=== PATIENT | male | born 1940 | race Caucasian/White ===

== ENCOUNTER 2023-04-17 11:36 | Inpatient (IN) | payer MEDICARE ==
[~2023-04-17] VITALS: Ht 190.5 cm; Wt 100.0 kg
[2023-04-17] VITALS (18 sets, daily range): BP systolic 64–123; BP diastolic 40–70; PULSE 53–82; RESP 6–22; O2SAT 91–99
[~2023-04-17 11:36] MED LIST: 5 HTP; CHOL100010 PO; CRAN450T9 PO; GING500C2 PO; GLUC100017 PO; LIDOcaine 1% 30ml preserv. free vial ONE; LIDOcaine 2% (20 mg/ml) 5ml cardiac syringe ONE; LISI40TA13 PO; LUTE6CAP PO; MULT-785 PO; OMEG100T PO; SAW80CAP2 PO; STINGING NETTLE; VITA100T PO; ZINC1CAP3 PO; amiodarone 50MG/ML inj IV ONE; atropine 0.1mg/ml 10ml syringe ONE; epiNEPHrine 0.1mg/ml 10ml syringe ONE; fentaNYL/PF 50MCG/1 ML 2ML syringe ONE; heparin 1,000unit/ml 10ml vial 10 ML ONE; iohexol 350MG/ML 100ml bottle IV ONE; midazolam 1 mg/ML 2ml injection ONE; nitroGLYCERIN 500mcg/5mL D5W 0 ML IV ONE; sodium bicarbonate (8.4%) 1 mEq/ml syringe ONE; verapamil 2.5 mg/ml inj IV ONE
[2023-04-17] MEDS: amiodarone 50MG/ML inj IV ONE (11:45)
[2023-04-17] MEDS: epiNEPHrine 1 mg/ml inj IV STA (11:46)
[2023-04-17] MEDS: atropine 1 MG/1 ML vial IV ONE (11:48)
[2023-04-17] MEDS: LIDOcaine 2% (20 mg/ml) 5ml cardiac syringe IV STA (11:49)
[2023-04-17 11:50] LABS: EOSINOPHILS # (AUTO) 0.1 X10'3 (0-0.9); RED BLOOD COUNT 4.33 X10'6 (4.70-6.10); WHITE BLOOD COUNT 6.7 X10'3 (4.5-11.0)
[2023-04-17 11:52] LABS: BASOPHILS % (AUTO) 0.6 % (0-1); EOSINOPHILS % (AUTO) 1.9 % (0-6); HEMATOCRIT 42.6 % (42.0-52.0); HEMOGLOBIN 14.3 g/dl (14.0-17.9); LYMPHOCYTES # (AUTO) 1.8 X10'3 (1.1-4.8); MEAN CORPUSCULAR HEMOGLOBIN 32.9 PG (27.0-31.0); MEAN CORPUSCULAR HGB CONC 33.5 g/dL (33.0-36.5); MEAN CORPUSCULAR VOLUME 98.3 FL (78-98); MEAN PLATELET VOLUME 7.5 FL (7.4-10.4); MONOCYTES # (AUTO) 0.7 X10'3 (0-0.9); MONOCYTES % (AUTO) 10.6 % (2-12); NEUTROPHILS % (AUTO) 59.9 % (42-75); PLATELET COUNT 287 X10'3 (140-440); RED CELL DISTRIBUTION WIDTH 13.2 % (11.5-14.5)
[2023-04-17] MEDS: propofol 1000mg/100ml bottle 100 ML IV ONE (11:55)
[2023-04-17] MEDS ORDERED: propofol 1000mg/100ml bottle 100 ML IV PRN ×2 (12:05→12:11)
[2023-04-17 12:11] LABS: ALBUMIN 3.8 G/DL (3.4-5.0); ANION GAP 12 (8-16); BLOOD UREA NITROGEN 24 MG/DL (7-18); BUN/CREATININE RATIO 21.6 (10.0-20.0); CALCIUM 9.2 MG/DL (8.5-10.1); CHLORIDE 102 MMOL/L (99-107); CREATININE 1.11 MG/DL (0.60-1.10); GLUCOSE 124 MG/DL (70-104); POTASSIUM 3.7 MMOL/L (3.5-5.1); PRO BRAIN NATRIURETIC PEPTIDE 176 PG/ML (0-450); SODIUM 141 MMOL/L (135-145); TOTAL CARBON DIOXIDE 26.7 MMOL/L (24-32); eCRCL 55 ML/MIN; eGFR 63 ML/MIN
[2023-04-17] MEDS ORDERED: ticagrelor 90mg tablet ONE (12:28)
[2023-04-17] MEDS: NORepinephrine 8mg/ 250ml NS 250 ML IV ONE (13:30)
[2023-04-17] MEDS ORDERED: amiodarone/D5 360MG/200ML BAG 200 ML IV SCH (13:55)
[2023-04-17 13:56] LABS: ABG BASE EXCESS -5.8 mmol/L (-2.0-2.0); ABG HCO3 19.2 mmol/L (22.0-26.0); ABG OXYGEN SATURATION 98.2 % (94-97); ABG PCO2 (T) 36.2 mmHg (35.0-48.0); ABG PH (T) 7.343 (7.340-7.440); ABG PO2 (T) 119.5 mmHg (75.0-100.0); FCOHb 0.3 % (0.0-3.9); FHHb 1.8 % (0.0-5.0); FMetHb 0.3 % (0.0-1.5); FO2Hb 97.6 % (94-97); MODE VENT - SIMV; PEEP 5 cm H2O; RESPIRATORY RATE 16 b/min; TIDAL VOLUME 450 mL; TOTAL HEMOGLOBIN 12.7 G/dl (14.0-17.9)
[2023-04-17] MEDS ORDERED: ROSU10TA28 PO (14:16)
[2023-04-17] MEDS ORDERED: ASCO100031 PO (14:16)
[2023-04-17] MEDS ORDERED: AMLO5TAB16 PO (14:16)
[2023-04-17] MEDS ORDERED: HYDR25TA4 PO (14:16)
[2023-04-17] MEDS ORDERED: ESCI-8 PO (14:16)
[2023-04-17] MEDS: amiodarone/D5 360MG/200ML BAG 200 ML IV SCH (14:20)
[2023-04-17] MEDS: FENTANYL-0.9 % NACL/PF 100 ML IV PRN (14:21)
[2023-04-17] MEDS ORDERED: ondansetron/PF 4mg/2ml inj IV PRN (14:30)
[2023-04-17] MEDS: ticagrelor 90mg tablet PO SCH (20:00)
[2023-04-18] VITALS (27 sets, daily range): BP systolic 71–158; BP diastolic 41–73; PULSE 54–94; RESP 6–25; TEMP 97.8–98.7; O2SAT 90–98
[2023-04-18 03:23] LABS: ABG HCO3 22.7 mmol/L (22.0-26.0); ABG OXYGEN SATURATION 93.7 % (94-97); ABG PCO2 (T) 43.9 mmHg (35.0-48.0); ABG PH (T) 7.334 (7.340-7.440); ALLEN'S TEST Modified; FCOHb 0.3 % (0.0-3.9); FHHb 6.3 % (0.0-5.0); FMetHb 0.3 % (0.0-1.5); FO2Hb 93.1 % (94-97); MODE PRVC; PATIENT TEMPERATURE 37.3; PEEP 5 cm H2O; RESPIRATORY RATE 16 b/min; TIDAL VOLUME 450 mL; TOTAL HEMOGLOBIN 12.2 G/dl (14.0-17.9)
[2023-04-18 06:19] LABS: BASOPHILS % (AUTO) 0 % (0-1); EOSINOPHILS % (AUTO) 0 % (0-6); HEMATOCRIT 33.4 % (42.0-52.0); HEMOGLOBIN 11.1 g/dl (14.0-17.9); LYMPHOCYTES # (AUTO) 0.6 X10'3 (1.1-4.8); LYMPHOCYTES % (AUTO) 5.1 % (21-51); MEAN CORPUSCULAR HEMOGLOBIN 33.1 PG (27.0-31.0); MEAN CORPUSCULAR HGB CONC 33.1 g/dL (33.0-36.5); MEAN CORPUSCULAR VOLUME 99.7 FL (78-98); MEAN PLATELET VOLUME 7.7 FL (7.4-10.4); MONOCYTES % (AUTO) 8.8 % (2-12); NEUTROPHILS # (AUTO) 10.2 X10'3 (1.8-7.7); NEUTROPHILS % (AUTO) 86.1 % (42-75); PLATELET COUNT 228 X10'3 (140-440); RED BLOOD COUNT 3.35 X10'6 (4.70-6.10); RED CELL DISTRIBUTION WIDTH 13.6 % (11.5-14.5); WHITE BLOOD COUNT 11.8 X10'3 (4.5-11.0)
[2023-04-18 06:42] LABS: ALANINE AMINOTRANSFERASE 57 U/L (12-78); ALBUMIN 2.7 G/DL (3.4-5.0); ALKALINE PHOSPHATASE 35 IU/L (46-116); ANION GAP 9 (8-16); ASPARTATE AMINO TRANSFERASE 178 U/L (10-37); BILIRUBIN,TOTAL 0.3 MG/DL (0.1-1.0); BLOOD UREA NITROGEN 28 MG/DL (7-18); BUN/CREATININE RATIO 19.2 (10.0-20.0); CALCIUM 7.2 MG/DL (8.5-10.1); CHLORIDE 110 MMOL/L (99-107); CREATININE 1.46 MG/DL (0.60-1.10); GLUCOSE 132 MG/DL (70-104); POTASSIUM 3.9 MMOL/L (3.5-5.1); SODIUM 143 MMOL/L (135-145); TOTAL CARBON DIOXIDE 24.4 MMOL/L (24-32); TOTAL PROTEIN 5.4 G/DL (6.4-8.2); eCRCL 42 ML/MIN; eGFR 46 ML/MIN
[2023-04-18] MEDS: famotidine/PF 10 mg/ml inj IV SCH ×2 (08:00→20:31)
[2023-04-18] MEDS: aspirin 81mg, enteric-coated 1 TAB TABLET.DR PO SCH (11:19)
[2023-04-18] MEDS: HYDROcodone/acetaminophen 10/325mg tab PO PRN (18:45)
[2023-04-18] MEDS: metoprolol tartrate 12.5mg (1/2 tablet) PO SCH (20:29)
[2023-04-18] MEDS ORDERED: ROSUVASTATIN CALCIUM 5 MG TABLET PO SCH (21:00)
[2023-04-18] MEDS: Melatonin 3mg tablet PO SCH (21:19)
[2023-04-18] MEDS: guaiFENesin/DM 10ml UD oral syrup PO PRN (21:19)
[2023-04-19] VITALS (29 sets, daily range): BP systolic 89–137; BP diastolic 50–80; PULSE 60–85; RESP 12–27; TEMP 97.4–98.2; O2SAT 24–98
[2023-04-19] MEDS: atorvastatin 20mg tablet PO SCH (07:31)
[2023-04-19] MEDS: ascorbic acid 500mg tablet PO SCH (07:32)
[2023-04-19] MEDS: ESCITALOPRAM 10 mg tablet 10 MG TABLET PO SCH (07:32)
[2023-04-19 08:19] LABS: BASOPHILS % (AUTO) 0.1 % (0-1); EOSINOPHILS % (AUTO) 0 % (0-6); HEMATOCRIT 32.5 % (42.0-52.0); HEMOGLOBIN 10.8 g/dl (14.0-17.9); LYMPHOCYTES # (AUTO) 0.5 X10'3 (1.1-4.8); LYMPHOCYTES % (AUTO) 3.9 % (21-51); MEAN CORPUSCULAR HEMOGLOBIN 33.4 PG (27.0-31.0); MEAN CORPUSCULAR HGB CONC 33.3 g/dL (33.0-36.5); MEAN CORPUSCULAR VOLUME 100.4 FL (78-98); MEAN PLATELET VOLUME 7.9 FL (7.4-10.4); MONOCYTES % (AUTO) 7.9 % (2-12); NEUTROPHILS # (AUTO) 10.9 X10'3 (1.8-7.7); NEUTROPHILS % (AUTO) 88.1 % (42-75); PLATELET COUNT 187 X10'3 (140-440); RED BLOOD COUNT 3.24 X10'6 (4.70-6.10); RED CELL DISTRIBUTION WIDTH 13.8 % (11.5-14.5); WHITE BLOOD COUNT 12.4 X10'3 (4.5-11.0)
[2023-04-19 08:50] LABS: TOTAL IRON BINDING CAPACITY 228 UG/DL (259-388)
[2023-04-19 08:52] LABS: % IRON SATURATION 12 % (11-46); IRON 28 UG/DL (53-167)
[2023-04-19 08:55] LABS: ALANINE AMINOTRANSFERASE 48 U/L (12-78); ALBUMIN 2.8 G/DL (3.4-5.0); ALBUMIN/GLOBULIN RATIO 0.9 (1.1-1.5); ALKALINE PHOSPHATASE 38 IU/L (46-116); ANION GAP 7 (8-16); ASPARTATE AMINO TRANSFERASE 113 U/L (10-37); BILIRUBIN,TOTAL 0.5 MG/DL (0.1-1.0); BLOOD UREA NITROGEN 35 MG/DL (7-18); BUN/CREATININE RATIO 25.7 (10.0-20.0); CALCIUM 8.2 MG/DL (8.5-10.1); CHLORIDE 108 MMOL/L (99-107); CHOL/HDL RATIO 1.7 (0.00-4.99); CHOLESTEROL 104 MG/DL (0-200); CREATININE 1.36 MG/DL (0.60-1.10); FERRITIN 206 NG/ML (26-388); GLUCOSE 132 MG/DL (70-104); HDL CHOLESTEROL 61 MG/DL (35-60); LDL CHOLESTEROL 32 MG/DL (50-100); MAGNESIUM 2.4 MG/DL (1.5-2.4); SODIUM 139 MMOL/L (135-145); TOTAL CARBON DIOXIDE 23.7 MMOL/L (24-32); TOTAL PROTEIN 5.9 G/DL (6.4-8.2); TRIGLYCERIDES 74 MG/DL (20-135); eCRCL 45 ML/MIN; eGFR 50 ML/MIN
[2023-04-19] MEDS: amiodarone 200mg tablet PO SCH (17:17)
[2023-04-20] VITALS (14 sets, daily range): BP systolic 100–135; BP diastolic 53–74; PULSE 65–83; RESP 16–23; TEMP 97.1–98; O2SAT 92–99
[2023-04-20 06:50] LABS: BASOPHILS % (AUTO) 0.1 % (0-1); EOSINOPHILS # (AUTO) 0.1 X10'3 (0-0.9); EOSINOPHILS % (AUTO) 0.6 % (0-6); HEMATOCRIT 30.4 % (42.0-52.0); HEMOGLOBIN 10.4 g/dl (14.0-17.9); LYMPHOCYTES # (AUTO) 0.5 X10'3 (1.1-4.8); LYMPHOCYTES % (AUTO) 5.5 % (21-51); MEAN CORPUSCULAR HEMOGLOBIN 33.9 PG (27.0-31.0); MEAN CORPUSCULAR HGB CONC 34.3 g/dL (33.0-36.5); MEAN CORPUSCULAR VOLUME 98.8 FL (78-98); MONOCYTES % (AUTO) 9.8 % (2-12); NEUTROPHILS # (AUTO) 8.2 X10'3 (1.8-7.7); PLATELET COUNT 175 X10'3 (140-440); RED BLOOD COUNT 3.07 X10'6 (4.70-6.10); RED CELL DISTRIBUTION WIDTH 13.1 % (11.5-14.5); WHITE BLOOD COUNT 9.7 X10'3 (4.5-11.0)
[2023-04-20 07:09] LABS: ALANINE AMINOTRANSFERASE 40 U/L (12-78); ALBUMIN 2.6 G/DL (3.4-5.0); ALBUMIN/GLOBULIN RATIO 0.9 (1.1-1.5); ALKALINE PHOSPHATASE 37 IU/L (46-116); ANION GAP 8 (8-16); ASPARTATE AMINO TRANSFERASE 63 U/L (10-37); BILIRUBIN,TOTAL 0.8 MG/DL (0.1-1.0); BLOOD UREA NITROGEN 36 MG/DL (7-18); BUN/CREATININE RATIO 29.8 (10.0-20.0); CHLORIDE 107 MMOL/L (99-107); CREATININE 1.21 MG/DL (0.60-1.10); GLUCOSE 113 MG/DL (70-104); MAGNESIUM 2.4 MG/DL (1.5-2.4); POTASSIUM 3.8 MMOL/L (3.5-5.1); SODIUM 140 MMOL/L (135-145); THYROID STIMULATING HORMONE 0.53 ulU/ml (0.34-4.50); TOTAL CARBON DIOXIDE 25.3 MMOL/L (24-32); TOTAL PROTEIN 5.6 G/DL (6.4-8.2); eCRCL 50 ML/MIN; eGFR 57 ML/MIN
[2023-04-20] MEDS: ferrous sulfate 325mg tablet PO SCH (09:27)
[2023-04-20] MEDS: famotidine 20mg tablet PO SCH (09:30)
[2023-04-20 15:14] LABS: HBSAG SCREEN Negative (Negative); HEP A AB, IGM Negative (Negative); HEP B CORE AB, IGM Negative (Negative); HEPATITIS C VIRUS ANTIBODY Non Reactive (Non Reactive)
[2023-04-20] MEDS: furosemide 20 MG/2 ML vial IV ONE (15:40)
[2023-04-20] MEDS: furosemide 20 MG/2 ML vial IV SCH (20:00)
[2023-04-20] MEDS: ESCITALOPRAM 10 mg tablet 10 MG TABLET PO SCH (21:02)
[2023-04-21] VITALS (15 sets, daily range): BP systolic 105–134; BP diastolic 58–74; PULSE 68–97; RESP 14–31; TEMP 97.3–98.5; O2SAT 90–99
[2023-04-21 06:35] LABS: BASOPHILS % (AUTO) 0.2 % (0-1); EOSINOPHILS # (AUTO) 0.1 X10'3 (0-0.9); EOSINOPHILS % (AUTO) 0.9 % (0-6); HEMATOCRIT 29.5 % (42.0-52.0); HEMOGLOBIN 10.2 g/dl (14.0-17.9); LYMPHOCYTES # (AUTO) 0.4 X10'3 (1.1-4.8); LYMPHOCYTES % (AUTO) 5.1 % (21-51); MEAN CORPUSCULAR HGB CONC 34.8 g/dL (33.0-36.5); MEAN CORPUSCULAR VOLUME 97.7 FL (78-98); MEAN PLATELET VOLUME 7.9 FL (7.4-10.4); MONOCYTES # (AUTO) 0.7 X10'3 (0-0.9); MONOCYTES % (AUTO) 8.5 % (2-12); NEUTROPHILS # (AUTO) 7.2 X10'3 (1.8-7.7); NEUTROPHILS % (AUTO) 85.3 % (42-75); PLATELET COUNT 196 X10'3 (140-440); RED BLOOD COUNT 3.02 X10'6 (4.70-6.10); RED CELL DISTRIBUTION WIDTH 12.9 % (11.5-14.5); WHITE BLOOD COUNT 8.5 X10'3 (4.5-11.0)
[2023-04-21 06:56] LABS: ALANINE AMINOTRANSFERASE 33 U/L (12-78); ALBUMIN 2.4 G/DL (3.4-5.0); ALBUMIN/GLOBULIN RATIO 0.8 (1.1-1.5); ALKALINE PHOSPHATASE 40 IU/L (46-116); ANION GAP 8 (8-16); ASPARTATE AMINO TRANSFERASE 43 U/L (10-37); BILIRUBIN,TOTAL 1.1 MG/DL (0.1-1.0); BLOOD UREA NITROGEN 34 MG/DL (7-18); BUN/CREATININE RATIO 25.6 (10.0-20.0); CALCIUM 8.1 MG/DL (8.5-10.1); CHLORIDE 107 MMOL/L (99-107); CREATININE 1.33 MG/DL (0.60-1.10); GLUCOSE 123 MG/DL (70-104); MAGNESIUM 2.1 MG/DL (1.5-2.4); POTASSIUM 3.3 MMOL/L (3.5-5.1); SODIUM 142 MMOL/L (135-145); TOTAL CARBON DIOXIDE 26.7 MMOL/L (24-32); TOTAL PROTEIN 5.6 G/DL (6.4-8.2); eCRCL 51 ML/MIN; eGFR 51 ML/MIN
[2023-04-21] MEDS ORDERED: magnesium 2GM in 50ml NS 50 ML IV PRN (12:25)
[2023-04-21] MEDS ORDERED: magnesium Cl slow-release 64mg tablet PO PRN (12:25)
[2023-04-21] MEDS ORDERED: potassium Cl 40MEQ/1/2NS 520ml 520 ML IV PRN (12:25)
[2023-04-21] MEDS ORDERED: potassium Cl 20 mEq SR tablet PO PRN (12:25)
[2023-04-21] MEDS ORDERED: magnesium 4gm in 100ml NS 100 ML IV PRN (12:25)
[2023-04-21] MEDS: potassium Cl 20 mEq SR tablet PO PRN (12:28)
[2023-04-21] MEDS ORDERED: ondansetron 4mg rapidly disintigrating tab PO PRN (14:05)
[2023-04-21] MEDS ORDERED: famotidine 20mg tablet PO SCH (14:17)
[2023-04-21] MEDS: K and/or MAG REPLACEMENT MC SCH (20:00)
[2023-04-22] MEDS: CefTRIAXone/D5W-Rocephin 1gm 50 ML IV SCH (00:15)
[2023-04-22 02:00] VITALS: BP 97/57; PULSE 57; RESP 18; TEMP 97; O2SAT 95
[2023-04-22 02:56] VITALS: PULSE 57; RESP 20; O2SAT 97
[2023-04-22 05:34] LABS: BASOPHILS % (AUTO) 0.3 % (0-1); EOSINOPHILS # (AUTO) 0.2 X10'3 (0-0.9); EOSINOPHILS % (AUTO) 2.7 % (0-6); HEMOGLOBIN 10.5 g/dl (14.0-17.9); LYMPHOCYTES # (AUTO) 0.5 X10'3 (1.1-4.8); LYMPHOCYTES % (AUTO) 6.9 % (21-51); MEAN CORPUSCULAR HGB CONC 34.9 g/dL (33.0-36.5); MEAN CORPUSCULAR VOLUME 97.4 FL (78-98); MEAN PLATELET VOLUME 7.5 FL (7.4-10.4); MONOCYTES # (AUTO) 0.9 X10'3 (0-0.9); MONOCYTES % (AUTO) 12.4 % (2-12); NEUTROPHILS # (AUTO) 5.7 X10'3 (1.8-7.7); NEUTROPHILS % (AUTO) 77.7 % (42-75); PLATELET COUNT 224 X10'3 (140-440); RED BLOOD COUNT 3.08 X10'6 (4.70-6.10); WHITE BLOOD COUNT 7.4 X10'3 (4.5-11.0)
[2023-04-22 05:57] LABS: ALANINE AMINOTRANSFERASE 32 U/L (12-78); ALBUMIN 2.4 G/DL (3.4-5.0); ALBUMIN/GLOBULIN RATIO 0.7 (1.1-1.5); ALKALINE PHOSPHATASE 43 IU/L (46-116); ANION GAP 6 (8-16); ASPARTATE AMINO TRANSFERASE 28 U/L (10-37); BILIRUBIN,TOTAL 0.9 MG/DL (0.1-1.0); BLOOD UREA NITROGEN 38 MG/DL (7-18); BUN/CREATININE RATIO 29.5 (10.0-20.0); CALCIUM 8.2 MG/DL (8.5-10.1); CHLORIDE 105 MMOL/L (99-107); CREATININE 1.29 MG/DL (0.60-1.10); GLUCOSE 108 MG/DL (70-104); MAGNESIUM 2.1 MG/DL (1.5-2.4); POTASSIUM 3.6 MMOL/L (3.5-5.1); SODIUM 140 MMOL/L (135-145); TOTAL CARBON DIOXIDE 28.9 MMOL/L (24-32); TOTAL PROTEIN 5.8 G/DL (6.4-8.2); eCRCL 53 ML/MIN; eGFR 53 ML/MIN
[2023-04-22 06:00] VITALS: BP 138/70; PULSE 55; RESP 16; TEMP 98.1; O2SAT 95; O2SAT 97
[2023-04-22 08:00] VITALS: RESP 20; O2SAT 93
[2023-04-22] MEDS: docusate sod 100mg capsule PO SCH (09:34)
[2023-04-22 11:08] VITALS: PULSE 73; RESP 18; O2SAT 97
[2023-04-22 12:00] VITALS: BP 114/61; PULSE 63; RESP 19; O2SAT 95
[2023-04-23] MEDS ORDERED: ASPI-611 PO (20:23)
[2023-04-23] MEDS ORDERED: FAMO-129 PO (20:23)
[2023-04-23] MEDS ORDERED: GUAI600T45 PO (20:23)
[2023-04-23] MEDS ORDERED: FLO0.4C PO (20:23)
[2023-04-23] MEDS ORDERED: FERR325T28 PO (20:23)
[2023-04-23] MEDS ORDERED: FURO40TA4 PO (20:23)
[2023-04-23] MEDS ORDERED: ATOR40TA71 PO (20:23)
[2023-04-23] MEDS ORDERED: TICA90TA PO (20:23)
[2023-04-23] MEDS ORDERED: LOP12.5T PO (20:23)
== END 2023-04-22 14:35 | DRG 321 ==
LOC: ER 11:37 → CICU 2S 13:03 → PCU 3S 04-18 15:59
PROVIDERS: ADMIT Internal Medicine Interventional Cardiology; ATTEND Internal Medicine Interventional Cardiology
PROC: 5A1935Z Respiratory Ventilation, Less than 24 Consecutive Hours (ICD-10-PCS; principal; 2023-04-17)
PROC: 027034Z Dilation of Coronary Artery, One Artery with Drug-eluting Intraluminal Device, Percutaneous Approach (ICD-10-PCS; 2023-04-17)
PROC: 0BH17EZ Insertion of Endotracheal Airway into Trachea, Via Natural or Artificial Opening (ICD-10-PCS; 2023-04-17)
PROC: 4A023N7 Measurement of Cardiac Sampling and Pressure, Left Heart, Percutaneous Approach (ICD-10-PCS; 2023-04-17)
PROC: B2111ZZ Fluoroscopy of Multiple Coronary Arteries using Low Osmolar Contrast (ICD-10-PCS; 2023-04-17)
PROC: B2151ZZ Fluoroscopy of Left Heart using Low Osmolar Contrast (ICD-10-PCS; 2023-04-17)
PROC: 5A2204Z Restoration of Cardiac Rhythm, Single (ICD-10-PCS; 2023-04-17)
PROC: 5A12012 Performance of Cardiac Output, Single, Manual (ICD-10-PCS; 2023-04-17)
PROC: 0T9B80Z Drainage of Bladder with Drainage Device, Via Natural or Artificial Opening Endoscopic (ICD-10-PCS; 2023-04-17)
PROC: 5A09357 Assistance with Respiratory Ventilation, Less than 24 Consecutive Hours, Continuous Positive Airway Pressure (ICD-10-PCS; 2023-04-18)
PROC: 5A0935A Assistance with Respiratory Ventilation, Less than 24 Consecutive Hours, High Flow/Velocity Cannula (ICD-10-PCS; 2023-04-18)
PROC: 5A09357 Assistance with Respiratory Ventilation, Less than 24 Consecutive Hours, Continuous Positive Airway Pressure (ICD-10-PCS; 2023-04-19)
PROC: 5A0935A Assistance with Respiratory Ventilation, Less than 24 Consecutive Hours, High Flow/Velocity Cannula (ICD-10-PCS; 2023-04-19)
PROC: 5A09357 Assistance with Respiratory Ventilation, Less than 24 Consecutive Hours, Continuous Positive Airway Pressure (ICD-10-PCS; 2023-04-20)
PROC: 5A0935A Assistance with Respiratory Ventilation, Less than 24 Consecutive Hours, High Flow/Velocity Cannula (ICD-10-PCS; 2023-04-20)
PROC: 5A09357 Assistance with Respiratory Ventilation, Less than 24 Consecutive Hours, Continuous Positive Airway Pressure (ICD-10-PCS; 2023-04-21)
DX: I21.29 ST elevation (STEMI) myocardial infarction involving other sites (principal); I46.9 Cardiac arrest, cause unspecified; I49.01 Ventricular fibrillation; J96.01 Acute respiratory failure with hypoxia; N17.0 Acute kidney failure with tubular necrosis; J90 Pleural effusion, not elsewhere classified; N13.8 Other obstructive and reflux uropathy; J44.0 Chronic obstructive pulmonary disease with (acute) lower respiratory infection; D75.89 Other specified diseases of blood and blood-forming organs; R74.01 Elevation of levels of liver transaminase levels; F32.A Depression, unspecified; N18.9 Chronic kidney disease, unspecified; I13.10 Hypertensive heart and chronic kidney disease without heart failure, with stage 1 through stage 4 chronic kidney disease, or unspecified chronic kidney disease; J20.9 Acute bronchitis, unspecified; E87.6 Hypokalemia; E78.00 Pure hypercholesterolemia, unspecified; N40.1 Benign prostatic hyperplasia with lower urinary tract symptoms; R33.8 Other retention of urine; I71.21 Aneurysm of the ascending aorta, without rupture; I25.10 Atherosclerotic heart disease of native coronary artery without angina pectoris; F41.9 Anxiety disorder, unspecified; Z82.49 Family history of ischemic heart disease and other diseases of the circulatory system; Z79.899 Other long term (current) drug therapy
CPT/HCPCS: 92950; 93306; 93458; 99285; C9600; C9606; 36415; 36600; 71045; 76700; 80048; 80053; 80061; 80074; 82607; 82728; 82803; 83540; 83550; 83735; 83880; 84132; 84443; 84484; 85018; 85025; 87070; 87081; 92508; 92616; 93005; 94002; 94003; 94660; 94760; 97116; 97161; 97530; A4340; A4349; A4615; A5200; A6212; A6213; A6258; A6449; C1725; C1751; C1758; C1769; C1874; G0378; J0171; J0282; J0461; J0696; J1644; J1940; J2250; J2704; J3010; J3490; J7030; J7040; Q9967

== ENCOUNTER 2023-07-02 02:32 | Inpatient (IN) | payer MEDICARE ==
[~2023-07-02] VITALS: Ht 180.3 cm; Wt 96.3 kg
[~2023-07-02 02:32] MED LIST changes: -5 HTP; +ASCO100031 PO; +ATOR40TA71 PO; -CHOL100010 PO; -CRAN450T9 PO; +ESCI-8 PO; +FAMO-129 PO; +FURO40TA4 PO; -GING500C2 PO; -GLUC100017 PO; +GUAI600T45 PO; -LIDOcaine 1% 30ml preserv. free vial ONE; -LIDOcaine 2% (20 mg/ml) 5ml cardiac syringe ONE; -LISI40TA13 PO; +LOP12.5T PO; -LUTE6CAP PO; -MULT-785 PO; -OMEG100T PO; -SAW80CAP2 PO; -STINGING NETTLE; +TICA90TA PO; -VITA100T PO; -ZINC1CAP3 PO; -amiodarone 50MG/ML inj IV ONE; -atropine 0.1mg/ml 10ml syringe ONE; -epiNEPHrine 0.1mg/ml 10ml syringe ONE; -fentaNYL/PF 50MCG/1 ML 2ML syringe ONE; -heparin 1,000unit/ml 10ml vial 10 ML ONE; -iohexol 350MG/ML 100ml bottle IV ONE; -midazolam 1 mg/ML 2ml injection ONE; -nitroGLYCERIN 500mcg/5mL D5W 0 ML IV ONE; -sodium bicarbonate (8.4%) 1 mEq/ml syringe ONE; -verapamil 2.5 mg/ml inj IV ONE
[2023-07-02 03:13] LABS: CLARITY,URINE TURBID (Clear); COLOR,URINE RED (Yellow); UA COLLECTION TYPE CLN CATCH MIDSTREAM
[2023-07-02 03:21] LABS: BACTERIA,URINE 1+ /HPF (Neg); RBC,URINE TNTC /HPF (0-2); SQUAMOUS EPITHELIAL CELL,UR FEW /LPF (FEW); WBC,URINE 0-4 /HPF (0-4)
[2023-07-02 03:22] LABS: WBC CLUMPS,URINE FEW /HPF (NEGATIVE)
[2023-07-02] MEDS: normal saline 500ml IV soln 500 ML IV ONE (03:45)
[2023-07-02 04:12] LABS: BASOPHILS # (AUTO) 0.1 X10'3 (0-0.2); BASOPHILS % (AUTO) 0.9 % (0-1); EOSINOPHILS # (AUTO) 0.6 X10'3 (0-0.9); EOSINOPHILS % (AUTO) 9.5 % (0-6); HEMATOCRIT 30.9 % (42.0-52.0); HEMOGLOBIN 10.2 g/dl (14.0-17.9); LYMPHOCYTES # (AUTO) 0.6 X10'3 (1.1-4.8); LYMPHOCYTES % (AUTO) 9.8 % (21-51); MEAN CORPUSCULAR HEMOGLOBIN 33.2 PG (27.0-31.0); MEAN CORPUSCULAR HGB CONC 33.1 g/dL (33.0-36.5); MEAN CORPUSCULAR VOLUME 100.1 FL (78-98); MEAN PLATELET VOLUME 6.8 FL (7.4-10.4); MONOCYTES # (AUTO) 0.5 X10'3 (0-0.9); MONOCYTES % (AUTO) 8.4 % (2-12); NEUTROPHILS # (AUTO) 4.1 X10'3 (1.8-7.7); NEUTROPHILS % (AUTO) 71.4 % (42-75); PLATELET COUNT 437 X10'3 (140-440); RED BLOOD COUNT 3.09 X10'6 (4.70-6.10); RED CELL DISTRIBUTION WIDTH 16.1 % (11.5-14.5); WHITE BLOOD COUNT 5.8 X10'3 (4.5-11.0)
[2023-07-02 04:34] LABS: APTT 25 SECONDS (22-32); PROTHROMBIN TIME 10.9 SECONDS (9.0-12.0)
[2023-07-02] MEDS: CefTRIAXone/D5W-Rocephin 1gm 50 ML IV ONE (04:52)
[2023-07-02] MEDS ORDERED: GABA-530 PO (08:20)
[2023-07-02] MEDS ORDERED: ASPI-1265 PO (08:20)
[2023-07-02] MEDS ORDERED: MULT-1085 PO (08:25)
[2023-07-02] MEDS ORDERED: KRIL1CAP40 PO (08:25)
[2023-07-02] MEDS ORDERED: FLO0.4C PO (08:25)
[2023-07-02] MEDS ORDERED: mag hydrox/Alum hydrox/simeth 30ml oral suspension PO PRN (10:35)
[2023-07-02] MEDS ORDERED: diphenhydrAMINE 50 mg/ml inj IV PRN (10:35)
[2023-07-02] MEDS ORDERED: bisacodyl 10mg suppository rectal RC PRN (10:35)
[2023-07-02] MEDS ORDERED: ondansetron 4mg rapidly disintigrating tab PO PRN (10:35)
[2023-07-02] MEDS ORDERED: acetaminophen 325mg tablet PO PRN ×2 (10:35)
[2023-07-02] MEDS ORDERED: acetaminophen 650mg rectal suppository RC PRN (10:35)
[2023-07-02] MEDS ORDERED: morphine 2 MG/ML inj. syringe IV PRN (10:35)
[2023-07-02] MEDS ORDERED: ondansetron/PF 4mg/2ml inj IV PRN (10:35)
[2023-07-02] MEDS ORDERED: HYDROcodone/acetaminophen 10/325mg tab PO PRN (10:35)
[2023-07-02] MEDS ORDERED: diphenhydrAMINE 25mg capsule PO PRN (10:35)
[2023-07-02] MEDS: normal saline 1000ml 1,000 ML IV SCH (11:36)
[2023-07-02 12:30] LABS: APTT 25 SECONDS (22-32); PROTHROMBIN TIME 11.2 SECONDS (9.0-12.0)
[2023-07-02 12:39] LABS: MAGNESIUM 2.1 MG/DL (1.5-2.4); PHOSPHORUS 3.4 MG/DL (2.3-4.5)
[2023-07-02] MEDS: gabapentin 100mg capsule PO SCH (13:12)
[2023-07-02 17:16] VITALS: BP 151/69; PULSE 64; RESP 15; TEMP 99.7; O2SAT 95
[2023-07-02 18:00] VITALS: BP 118/61; PULSE 65; RESP 16; TEMP 98.9; O2SAT 95
[2023-07-02 20:00] VITALS: RESP 18
[2023-07-02] MEDS: docusate sod 100mg capsule PO SCH (20:26)
[2023-07-02] MEDS: metoprolol tartrate 12.5mg (1/2 tablet) PO SCH (20:27)
[2023-07-02] MEDS: tamsulosin 0.4mg capsule PO SCH (20:27)
[2023-07-02] MEDS: guaiFENesin ER 600mg tablet PO SCH (20:27)
[2023-07-02] MEDS ORDERED: temazepam 15mg capsule PO PRN (21:00)
[2023-07-02] MEDS ORDERED: tamsulosin 0.4mg capsule PO SCH (21:00)
[2023-07-02 22:00] VITALS: BP 114/54; PULSE 61; RESP 16; TEMP 99; O2SAT 95
[2023-07-03 02:00] VITALS: BP 112/55; PULSE 65; RESP 16; TEMP 98.6; O2SAT 98
[2023-07-03 06:00] VITALS: BP 115/66; PULSE 59; RESP 21; TEMP 97.5; O2SAT 96
[2023-07-03 07:06] LABS: ALANINE AMINOTRANSFERASE 15 U/L (12-78); ALBUMIN 2.1 G/DL (3.4-5.0); ALBUMIN/GLOBULIN RATIO 0.7 (1.1-1.5); ALKALINE PHOSPHATASE 69 IU/L (46-116); ANION GAP 5 (8-16); ASPARTATE AMINO TRANSFERASE 12 U/L (10-37); BILIRUBIN,TOTAL 0.4 MG/DL (0.1-1.0); BLOOD UREA NITROGEN 14 MG/DL (7-18); CALCIUM 7.9 MG/DL (8.5-10.1); CHLORIDE 110 MMOL/L (99-107); CHOL/HDL RATIO 2.4 (0.00-4.99); CHOLESTEROL 102 MG/DL (0-200); GLUCOSE 102 MG/DL (70-104); HDL CHOLESTEROL 42 MG/DL (35-60); LDL CHOLESTEROL 46 MG/DL (50-100); POTASSIUM 4.1 MMOL/L (3.5-5.1); SODIUM 141 MMOL/L (135-145); TOTAL CARBON DIOXIDE 25.7 MMOL/L (24-32); TOTAL PROTEIN 5.2 G/DL (6.4-8.2); TRIGLYCERIDES 84 MG/DL (20-135); eCRCL 61 ML/MIN; eGFR 72 ML/MIN
[2023-07-03 07:12] LABS: BASOPHILS % (AUTO) 0.5 % (0-1); EOSINOPHILS # (AUTO) 0.2 X10'3 (0-0.9); EOSINOPHILS % (AUTO) 3.3 % (0-6); HEMATOCRIT 25.5 % (42.0-52.0); HEMOGLOBIN 8.4 g/dl (14.0-17.9); LYMPHOCYTES # (AUTO) 0.5 X10'3 (1.1-4.8); LYMPHOCYTES % (AUTO) 6.9 % (21-51); MEAN CORPUSCULAR HEMOGLOBIN 33.1 PG (27.0-31.0); MEAN CORPUSCULAR VOLUME 100.3 FL (78-98); MEAN PLATELET VOLUME 6.9 FL (7.4-10.4); MONOCYTES # (AUTO) 0.6 X10'3 (0-0.9); MONOCYTES % (AUTO) 8.6 % (2-12); NEUTROPHILS # (AUTO) 5.8 X10'3 (1.8-7.7); NEUTROPHILS % (AUTO) 80.7 % (42-75); PLATELET COUNT 387 X10'3 (140-440); RED BLOOD COUNT 2.54 X10'6 (4.70-6.10); RED CELL DISTRIBUTION WIDTH 16.1 % (11.5-14.5); WHITE BLOOD COUNT 7.2 X10'3 (4.5-11.0)
[2023-07-03] MEDS: CefTRIAXone/D5W-Rocephin 1gm 50 ML IV SCH (07:46)
[2023-07-03] MEDS: atorvastatin 20mg tablet PO SCH (08:30)
[2023-07-03] MEDS: ESCITALOPRAM 10 mg tablet 10 MG TABLET PO SCH (08:30)
[2023-07-03] MEDS: pantoprazole 40mg Tablet.DR PO SCH (08:31)
[2023-07-03 11:00] VITALS: BP 117/53; PULSE 58; RESP 18; TEMP 97.9; O2SAT 95
[2023-07-03 15:00] VITALS: BP 126/66; PULSE 61; RESP 15; TEMP 97.9; O2SAT 94
[2023-07-03] MEDS ORDERED: ticagrelor 90mg tablet PO SCH (15:55)
[2023-07-03] MEDS: clopidogrel 75mg tablet PO SCH (17:26)
[2023-07-03] MEDS: aspirin 81mg tab.chew PO SCH (17:26)
[2023-07-03 18:00] VITALS: BP 131/69; PULSE 67; RESP 18; TEMP 98.1; O2SAT 94
[2023-07-03 22:00] VITALS: BP 131/69; PULSE 65; RESP 14; TEMP 97; O2SAT 93
[2023-07-04 02:00] VITALS: BP 134/66; PULSE 61; RESP 20; TEMP 97.5; O2SAT 92
[2023-07-04] MEDS: HYDROcodone/acetaminophen 5mg/325mg tablet PO PRN (05:46)
[2023-07-04 06:00] VITALS: BP 138/64; PULSE 66; RESP 20; TEMP 97.7; O2SAT 4
[2023-07-04 07:59] LABS: BASOPHILS % (AUTO) 0.4 % (0-1); EOSINOPHILS # (AUTO) 0.3 X10'3 (0-0.9); EOSINOPHILS % (AUTO) 4.4 % (0-6); HEMATOCRIT 25.5 % (42.0-52.0); HEMOGLOBIN 8.6 g/dl (14.0-17.9); LYMPHOCYTES # (AUTO) 0.5 X10'3 (1.1-4.8); LYMPHOCYTES % (AUTO) 6.2 % (21-51); MEAN CORPUSCULAR HEMOGLOBIN 33.8 PG (27.0-31.0); MEAN CORPUSCULAR HGB CONC 33.6 g/dL (33.0-36.5); MEAN CORPUSCULAR VOLUME 100.6 FL (78-98); MEAN PLATELET VOLUME 6.7 FL (7.4-10.4); MONOCYTES # (AUTO) 0.5 X10'3 (0-0.9); NEUTROPHILS # (AUTO) 6.3 X10'3 (1.8-7.7); PLATELET COUNT 367 X10'3 (140-440); RED BLOOD COUNT 2.54 X10'6 (4.70-6.10); RED CELL DISTRIBUTION WIDTH 15.9 % (11.5-14.5); WHITE BLOOD COUNT 7.7 X10'3 (4.5-11.0)
[2023-07-04 08:25] LABS: ALANINE AMINOTRANSFERASE 16 U/L (12-78); ALBUMIN 2.1 G/DL (3.4-5.0); ALBUMIN/GLOBULIN RATIO 0.7 (1.1-1.5); ALKALINE PHOSPHATASE 74 IU/L (46-116); ANION GAP 5 (8-16); ASPARTATE AMINO TRANSFERASE 16 U/L (10-37); BILIRUBIN,TOTAL 0.4 MG/DL (0.1-1.0); BLOOD UREA NITROGEN 17 MG/DL (7-18); CHLORIDE 109 MMOL/L (99-107); GLUCOSE 100 MG/DL (70-104); POTASSIUM 4.2 MMOL/L (3.5-5.1); SODIUM 138 MMOL/L (135-145); TOTAL CARBON DIOXIDE 23.8 MMOL/L (24-32); TOTAL PROTEIN 5.3 G/DL (6.4-8.2); eCRCL 61 ML/MIN; eGFR 72 ML/MIN
[2023-07-04] MEDS: magnesium hydroxide 30ml (MOM) UD suspension PO PRN (08:35)
[2023-07-04 11:00] VITALS: BP 107/54; PULSE 59; RESP 20; TEMP 98.1; O2SAT 94
[2023-07-04] MEDS: polyethylene glycol 3350 17gm powd pack PO ONE (13:45)
[2023-07-04] MEDS ORDERED: lactulose 20gm/30ml cup PO PRN (13:45)
[2023-07-04] MEDS ORDERED: mineral oil 133ml enema RC PRN (13:45)
[2023-07-04 15:00] VITALS: BP 124/64; PULSE 59; RESP 14; TEMP 98.3; O2SAT 95
[2023-07-04 18:00] VITALS: BP 115/60; PULSE 59; RESP 13; TEMP 98; O2SAT 93
[2023-07-04 22:00] VITALS: BP 122/60; PULSE 62; RESP 14; TEMP 97.4; O2SAT 93
[2023-07-05] VITALS (17 sets, daily range): BP systolic 104–134; BP diastolic 53–79; PULSE 14–82; RESP 13–22; TEMP 96.8–98.4; O2SAT 20–98
[2023-07-05 07:34] LABS: BASOPHILS % (AUTO) 0.5 % (0-1); EOSINOPHILS # (AUTO) 0.4 X10'3 (0-0.9); EOSINOPHILS % (AUTO) 6.2 % (0-6); HEMATOCRIT 25.7 % (42.0-52.0); HEMOGLOBIN 8.7 g/dl (14.0-17.9); LYMPHOCYTES # (AUTO) 0.5 X10'3 (1.1-4.8); LYMPHOCYTES % (AUTO) 7.2 % (21-51); MEAN CORPUSCULAR HEMOGLOBIN 33.7 PG (27.0-31.0); MEAN CORPUSCULAR HGB CONC 33.8 g/dL (33.0-36.5); MEAN CORPUSCULAR VOLUME 99.6 FL (78-98); MEAN PLATELET VOLUME 6.6 FL (7.4-10.4); MONOCYTES # (AUTO) 0.6 X10'3 (0-0.9); MONOCYTES % (AUTO) 8.4 % (2-12); NEUTROPHILS # (AUTO) 5.4 X10'3 (1.8-7.7); NEUTROPHILS % (AUTO) 77.7 % (42-75); PLATELET COUNT 365 X10'3 (140-440); RED BLOOD COUNT 2.58 X10'6 (4.70-6.10); RED CELL DISTRIBUTION WIDTH 15.8 % (11.5-14.5); WHITE BLOOD COUNT 6.9 X10'3 (4.5-11.0)
[2023-07-05 07:51] LABS: ALANINE AMINOTRANSFERASE 14 U/L (12-78); ALBUMIN 2.2 G/DL (3.4-5.0); ALBUMIN/GLOBULIN RATIO 0.7 (1.1-1.5); ALKALINE PHOSPHATASE 78 IU/L (46-116); ANION GAP 7 (8-16); ASPARTATE AMINO TRANSFERASE 13 U/L (10-37); BILIRUBIN,TOTAL 0.4 MG/DL (0.1-1.0); BLOOD UREA NITROGEN 15 MG/DL (7-18); BUN/CREATININE RATIO 15.6 (10.0-20.0); CHLORIDE 108 MMOL/L (99-107); CREATININE 0.96 MG/DL (0.60-1.10); GLUCOSE 96 MG/DL (70-104); POTASSIUM 4.3 MMOL/L (3.5-5.1); SODIUM 139 MMOL/L (135-145); TOTAL CARBON DIOXIDE 24.4 MMOL/L (24-32); TOTAL PROTEIN 5.4 G/DL (6.4-8.2); eCRCL 63 ML/MIN; eGFR 75 ML/MIN
[2023-07-05] MEDS ORDERED: ESCI-8 PO (10:10)
[2023-07-05 11:41] LABS: C-REACTIVE PROTEIN 2.8 MG/DL (0.0-0.5)
[2023-07-05 11:42] LABS: D-DIMER 5.55 MG/L FEU (0-0.50)
[2023-07-05] MEDS: ipratropium/albuterol 3ml nebule NEB SCH (11:55)
[2023-07-05] MEDS: furosemide 10 MG/1 ML 10ml inj IV ONE (12:07)
[2023-07-05] MEDS: azithromycin/NS 500mg/250ml 250 ML IV ONE (13:41)
[2023-07-05] MEDS: methylPREDNISolone sod succ 125mg/2ml vial IV SCH (13:57)
[2023-07-05] MEDS: furosemide 40mg/4ml inj IV SCH (20:06)
[2023-07-05] MEDS: citalopram 20mg tablet PO SCH (20:24)
[2023-07-06] VITALS (14 sets, daily range): BP systolic 104–132; BP diastolic 44–67; PULSE 67–83; RESP 12–18; TEMP 96.7–98.1; O2SAT 90–97
[2023-07-06 07:27] LABS: BASOPHILS % (AUTO) 0 % (0-1); EOSINOPHILS % (AUTO) 0 % (0-6); HEMATOCRIT 26.3 % (42.0-52.0); HEMOGLOBIN 8.9 g/dl (14.0-17.9); LYMPHOCYTES # (AUTO) 0.3 X10'3 (1.1-4.8); LYMPHOCYTES % (AUTO) 3.8 % (21-51); MEAN CORPUSCULAR HEMOGLOBIN 33.6 PG (27.0-31.0); MEAN CORPUSCULAR VOLUME 98.8 FL (78-98); MEAN PLATELET VOLUME 6.8 FL (7.4-10.4); MONOCYTES # (AUTO) 0.1 X10'3 (0-0.9); MONOCYTES % (AUTO) 0.8 % (2-12); NEUTROPHILS # (AUTO) 6.7 X10'3 (1.8-7.7); NEUTROPHILS % (AUTO) 95.4 % (42-75); PLATELET COUNT 356 X10'3 (140-440); RED BLOOD COUNT 2.66 X10'6 (4.70-6.10); RED CELL DISTRIBUTION WIDTH 15.6 % (11.5-14.5); WHITE BLOOD COUNT 7.1 X10'3 (4.5-11.0)
[2023-07-06 07:52] LABS: ALANINE AMINOTRANSFERASE 14 U/L (12-78); ALBUMIN 2.4 G/DL (3.4-5.0); ALBUMIN/GLOBULIN RATIO 0.7 (1.1-1.5); ALKALINE PHOSPHATASE 76 IU/L (46-116); ANION GAP 9 (8-16); ASPARTATE AMINO TRANSFERASE 9 U/L (10-37); BILIRUBIN,TOTAL 0.3 MG/DL (0.1-1.0); BLOOD UREA NITROGEN 21 MG/DL (7-18); BUN/CREATININE RATIO 18.4 (10.0-20.0); CALCIUM 8.1 MG/DL (8.5-10.1); CHLORIDE 106 MMOL/L (99-107); CREATININE 1.14 MG/DL (0.60-1.10); GLUCOSE 159 MG/DL (70-104); POTASSIUM 4.1 MMOL/L (3.5-5.1); SODIUM 140 MMOL/L (135-145); TOTAL CARBON DIOXIDE 24.9 MMOL/L (24-32); TOTAL PROTEIN 5.9 G/DL (6.4-8.2); eCRCL 53 ML/MIN; eGFR 61 ML/MIN
[2023-07-06] MEDS ORDERED: ALBU8HFA INH (14:31)
[2023-07-06] MEDS ORDERED: LEVO-65 PO (14:31)
[2023-07-06] MEDS ORDERED: CLOP-32 PO (15:36)
== END 2023-07-06 16:15 | disposition home health service (06) | DRG 813 ==
LOC: ER 02:32 → ED HOLD 10:37 → PCU 3S 17:08
PROVIDERS: ADMIT Family Medicine; ATTEND Family Medicine
PROC: 5A09357 Assistance with Respiratory Ventilation, Less than 24 Consecutive Hours, Continuous Positive Airway Pressure (ICD-10-PCS; principal; 2023-07-06)
DX: D68.32 Hemorrhagic disorder due to extrinsic circulating anticoagulants (principal); J18.9 Pneumonia, unspecified organism; J96.01 Acute respiratory failure with hypoxia; N30.01 Acute cystitis with hematuria; I50.32 Chronic diastolic (congestive) heart failure; J44.0 Chronic obstructive pulmonary disease with (acute) lower respiratory infection; E78.00 Pure hypercholesterolemia, unspecified; I11.0 Hypertensive heart disease with heart failure; I71.9 Aortic aneurysm of unspecified site, without rupture; I25.10 Atherosclerotic heart disease of native coronary artery without angina pectoris; F41.9 Anxiety disorder, unspecified; D64.9 Anemia, unspecified; K21.9 Gastro-esophageal reflux disease without esophagitis; I27.20 Pulmonary hypertension, unspecified; N32.89 Other specified disorders of bladder; N40.0 Benign prostatic hyperplasia without lower urinary tract symptoms; Z79.82 Long term (current) use of aspirin; Z79.899 Other long term (current) drug therapy; Z95.810 Presence of automatic (implantable) cardiac defibrillator; Z95.5 Presence of coronary angioplasty implant and graft; I25.2 Old myocardial infarction; Z82.49 Family history of ischemic heart disease and other diseases of the circulatory system; T45.515A Adverse effect of anticoagulants, initial encounter
CPT/HCPCS: 36415; 71045; 74176; 80053; 80061; 81001; 83605; 83735; 83880; 84100; 84145; 84484; 85025; 85379; 85610; 85651; 85730; 86140; 87040; 87081; 94640; 94660; 94760; 96365; 97161; 97530; 97535; 99285; A4314; A4346; A4355; A4615; A5200; G0378; J0456; J0696; J1940; J2930; J7030; J7040